=== PATIENT | female | born 1985 | race American Indian/Alaskan Native ===

== ENCOUNTER 2016-07-26 06:18 | Day surgery (SDC) | payer BC ==
[~2016-07-26 06:18] MED LIST: ANCEF/STERILE WATER 2 GM/20 ML IV NR
--- NOTE | 2016-07-26 07:21 | Anesthesia Consultation ---
Anesthesia Consult and Med Hx Date of service: 07/26/16 - Airway Anesthetic Teeth Evaluation: Good ROM Head & Neck: Adequate Mental/Hyoid Distance: Adequate Mallampati Class: Class II Intubation Access Assessment: Probably Good - Pulmonary Exam CTA: Yes - Cardiac Exam Cardiac Exam: RRR - Pre-Operative Health Status ASA Pre-Surgery Classification: ASA2 Proposed Anesthetic Plan: General - Pulmonary SOB: No Hx Pneumonia: No Hx Sleep Apnea: (HIGH RISK CONRAD) - Cardiovascular System Hx Hypertension: Yes (HYPERTENSION DURING ONLY OCTOBER/2014, NEVER ON MEDICINES) - Central Nervous System Hx Psychiatric Problems: No - Hematic Hx Anemia: Yes (LATEST H&H DONE AT PCP LAST MONTH) Hx Sickle Cell Disease: No - Other Systems Hx Alcohol Use: Yes (SOCIALLY/1-2 MONTH) Hx Substance Use: No Hx Cancer: No Hx Obesity: Yes
--- NOTE | 2016-07-26 07:21 | Anesthesia Day of Surgery ---
Anesthesia Day of Surgery - Day of Surgery Patient Examined: Yes Patient H&P Reviewed: Yes Patient is NPO: Yes
[2016-07-26] MEDS ORDERED: ZOFRAN IV PRN (07:25)
[2016-07-26] MEDS ORDERED: DILAUDID IV PRN (07:25)
[2016-07-26] MEDS ORDERED: NORCO 5/325 PO PRN (07:25)
[2016-07-26] MEDS ORDERED: ANTIBIOTIC OINT TP ONE (07:35)
[2016-07-26 07:36] LABS: Hematocrit 35.8 % (30.3-42.9); Hemoglobin 11.3 gm/dl (10.1-14.3)
[2016-07-26] MEDS ORDERED: PEPCID PO NR (08:00)
[2016-07-26] MEDS ORDERED: NACL 0.9% 1000 ML 1,000 ML IV SCH (08:00)
[2016-07-26] MEDS ORDERED: VERSED IV NR (08:00)
[2016-07-26] MEDS ORDERED: DIPRIVAN 10 MG/ML IV ONE (08:05)
[2016-07-26] MEDS ORDERED: ZOFRAN ONE (08:06)
[2016-07-26] MEDS ORDERED: DECADRON ONE (08:06)
[2016-07-26] MEDS ORDERED: SUBLIMAZE ONE (08:06)
[2016-07-26] MEDS ORDERED: XYLOCAINE MPF 2% ONE (08:06)
[2016-07-26] MEDS ORDERED: MARCAINE-EPI 0.25%-1:200,000 INFILTRATI ONE ×2 (08:42→08:51)
[2016-07-26] MEDS ORDERED: NACL 0.9% IR ONE (08:52)
--- NOTE | 2016-07-26 09:44 | Post Anesthesia Evaluation ---
- Post Anesthesia Evaluation Patient Participated: Yes Airway Patent: Yes Stable Respiratory Function: Yes Temp > 96.8F: Yes Pain Manageable: Yes Adequeate Hydration: Yes Anesthesia Complications: No Block Receding Appropriately: Not Applicable
--- NOTE | 2016-07-26 09:59 | Operative Report ---
PREOPERATIVE DIAGNOSIS: Keloid of right ear. POSTOPERATIVE DIAGNOSIS: Keloid of right ear. PROCEDURE: 1. Excision benign neoplasm of right ear greater than 4 cm. 2. Adjacent tissue transfer less than 10 square cm. SURGEON: Case Dugan MD. DESCRIPTION OF PROCEDURE: The patient was brought to the operating room and placed on the table in supine position. Following administration of general anesthesia, the right ear was prepped with Betadine solution and draped in the usual sterile manner. Local anesthesia consisting of 0.25% Marcaine with epinephrine was injected followed by circumferential excision of the tumor sent to pathology as specimen. Tissue was advanced and rotated across the defect. Closed in layers using interrupted and running subcuticular 4-0 Monocryl sutures. Mastisol, Steri-Strips, and sterile dressings applied. The patient tolerated the procedure well and returned to recovery room in stable condition. JOB# [id number] FTW/NTS
[2016-07-26 10:28] VITALS: BP 154/86
== END 2016-07-26 10:35 | disposition home or self-care (01) ==
LOC: OR 06:18
PROVIDERS: ATTEND Plastic Surgery
DX: L91.0 Hypertrophic scar (principal); D64.9 Anemia, unspecified; E66.9 Obesity, unspecified; Z68.34 Body mass index [BMI] 34.0-34.9, adult; Z79.899 Other long term (current) drug therapy; Z72.89 Other problems related to lifestyle; Z83.3 Family history of diabetes mellitus; Z84.1 Family history of disorders of kidney and ureter; Z83.49 Family history of other endocrine, nutritional and metabolic diseases; Z82.49 Family history of ischemic heart disease and other diseases of the circulatory system
CPT/HCPCS: 14060; 36415; 81025; 82962; 85014; 85018; 88305; J0690; J1100; J2250; J2405; J2704; J3010; J7030

== ENCOUNTER 2016-08-09 06:38 | Day surgery (SDC) | payer BC ==
[2016-08-09] MEDS ORDERED: XYLOCAINE MPF 2% ONE (06:49)
[2016-08-09] MEDS ORDERED: DIPRIVAN 10 MG/ML IV ONE (06:52)
[2016-08-09] MEDS ORDERED: DILAUDID ONE (06:53)
--- NOTE | 2016-08-09 07:08 | Anesthesia Day of Surgery ---
Anesthesia Day of Surgery - Day of Surgery Patient Examined: Yes Patient H&P Reviewed: Yes Patient is NPO: Yes
--- NOTE | 2016-08-09 07:10 | Anesthesia Consultation ---
Anesthesia Consult and Med Hx - Airway Anesthetic Teeth Evaluation: Good ROM Head & Neck: Adequate Mental/Hyoid Distance: Adequate Mallampati Class: Class III Intubation Access Assessment: Possibly Difficult - Pulmonary Exam CTA: Yes - Cardiac Exam Cardiac Exam: RRR - Pre-Operative Health Status ASA Pre-Surgery Classification: ASA2 Proposed Anesthetic Plan: General - Pulmonary SOB: No Hx Pneumonia: No Hx Sleep Apnea: (HIGH RISK CONRAD) - Cardiovascular System Hx Hypertension: Yes (HYPERTENSION DURING ONLY OCTOBER/2014, NEVER ON MEDICINES) - Central Nervous System Hx Psychiatric Problems: No - Endocrine Hx Non-Insulin Dependent Diabetes: Yes - Hematic Hx Anemia: Yes (LATEST H&H DONE AT PCP LAST MONTH) Hx Sickle Cell Disease: No - Other Systems Hx Alcohol Use: Yes (SOCIALLY/1-2 MONTH) Hx Substance Use: No Hx Cancer: No Hx Obesity: Yes - Additional Comments Anesthesia Medical History Comments: Pt NPO after MN. No prior anesthesia problems. Obese with NIDDM.
[2016-08-09] MEDS ORDERED: MARCAINE 0.25% INFILTRATI ONE (07:13)
[2016-08-09] MEDS ORDERED: XYLOCAINE 1%/ EPI 1:100,000 INFILTRATI ONE ×2 (07:14→08:06)
[2016-08-09] MEDS ORDERED: MARCAINE-EPI 0.25%-1:200,000 INFILTRATI ONE ×2 (07:14→08:06)
[2016-08-09] MEDS ORDERED: ANTIBIOTIC OINT TP ONE (07:14)
[2016-08-09] MEDS ORDERED: ANCEF/STERILE WATER 2 GM/20 ML 2 GM/20 ML SYRINGE IV ONE (07:59)
[2016-08-09] MEDS ORDERED: PEPCID PO NR (08:00)
[2016-08-09] MEDS ORDERED: NACL 0.9% 1000 ML 1,000 ML IV SCH (08:00)
[2016-08-09] MEDS ORDERED: VERSED IV NR (08:00)
[2016-08-09] MEDS ORDERED: DECADRON ONE (08:06)
[2016-08-09] MEDS ORDERED: ZOFRAN ONE (08:06)
--- NOTE | 2016-08-09 08:06 | Short Stay Summary ---
Short Stay Documentation Date of service: 08/09/16 Narrative H&P: Left ear Keloid which has been a source of chronic pain and itching - History Past Medical History: No medical history Past Surgical History: No surgical history Social history: no significant social history - Allergies and Medications Current Medications: Allergies No Known Allergies Allergy (Unverified 07/14/16 10:48) Home Medications Medication Instructions Recorded Confirmed Last Taken Type Sitagliptin Phos/Metformin HCl 1 tab PO QDAY 07/14/16 07/26/16 08/07/16 History [Janumet XR 50-500 mg] Active Medications Famotidine (Pepcid) 20 mg PO PREOP NR Stop: 08/09/16 23:59 Last Admin: 08/09/16 07:36 Dose: 20 mg Sodium Chloride (Nacl 0.9% 1000 Ml) 1,000 mls @ 75 mls/hr IV DIRECT RON Last Admin: 08/09/16 07:36 Dose: 75 mls/hr Midazolam HCl (Versed) 2 mg IV PREOP NR Stop: 08/09/16 23:59 Last Admin: 08/09/16 07:40 Dose: 2 mg - Physical exam General appearance: no acute distress HEENT: Atraumatic, PERRLA Lungs: Clear to auscultation Heart: Regular rate Rectal Exam: deferred Extremities: no ischemia, No edema - Brief post op/procedure progress note Date of procedure: 08/09/16 Pre-op diagnosis: L ear Keloid Post-op diagnosis: same Procedure: Excision of Left ear Keloid Anesthesia: GETA [employer] Manager: CLEVELAND CEBALLOS JR Estimated blood loss: minimal Pathology: none Specimen disposition: to lab Condition: stable - Disposition Condition at discharge: Good Disposition: DISCHARGED TO HOME OR SELFCARE Short Stay Discharge Plan Follow up with: FELISA LEES MD [Primary Care Provider] - 7 Days
[2016-08-09] MEDS ORDERED: ANCEF/STERILE WATER 2 GM/20 ML IV NR (08:57)
--- NOTE | 2016-08-09 12:51 | Post Anesthesia Evaluation ---
- Post Anesthesia Evaluation Patient Participated: Yes Airway Patent: Yes Stable Respiratory Function: Yes Nausea/Vomiting: No Temp > 96.8F: Yes Pain Manageable: Yes Adequeate Hydration: Yes Anesthesia Complications: No
--- NOTE | 2016-08-12 09:55 | Operative Report ---
SERVICE: Plastic surgery. PREOPERATIVE DIAGNOSIS: Keloid of left ear. POSTOPERATIVE DIAGNOSIS: Keloid of left ear. PROCEDURE: 1.Excision benign neoplasm of left ear, 4 cm. 2.Adjacent tissue transfer closure, less than 10 square cm. SURGEON: Case Dugan MD DESCRIPTION OF PROCEDURE: The patient was brought to the operating room and placed on the table in supine position. Following administration of general anesthesia, the ear was prepped with a Betadine solution and draped in the usual sterile manner. Local anesthesia was infiltrated with 0.25% Marcaine with epinephrine. A #11 blade scalpel was used to circumferentially excise the tumor and sent to pathology as specimen. Hemostasis controlled using the electrocautery. Closure was performed in layers using interrupted and running subcuticular 4-0 Monocryl sutures. Mastisol, Steri-Strips, and sterile dressings applied. The patient tolerated the procedure well and returned to recovery room in stable condition. She will be undergoing radiation therapy later in the afternoon. JOB# [id number] FTW/NTS
== END 2016-08-09 10:40 | disposition home or self-care (01) ==
LOC: OR 06:38
PROVIDERS: ATTEND Plastic Surgery
DX: L91.0 Hypertrophic scar (principal); Z79.899 Other long term (current) drug therapy
CPT/HCPCS: 14060; 81025; 82962; 88305; J0690; J1100; J1170; J2250; J2405; J2704; J7030